=== PATIENT | female | born 1995 | race Caucasian/White ===

== ENCOUNTER 2017-10-09 17:48 | Emergency (ER) | payer OTHER ==
[2017-10-09] MEDS ORDERED: ONDANSETRON 4 MG TAB.RAPDIS PO ONE (18:30)
[2017-10-09] MEDS ORDERED: ACETAMINOPHEN ES 500 MG TABLET PO ONE (18:30)
[2017-10-09] MEDS ORDERED: ACETAMINOPHEN ES 500 MG TABLET ONE (19:02)
[2017-10-09] MEDS ORDERED: ONDANSETRON 4 MG TAB.RAPDIS ONE (19:02)
== END 2017-10-09 19:38 | disposition home or self-care (01) ==
DX: Z02.89 Encounter for other administrative examinations (principal); F11.23 Opioid dependence with withdrawal